=== PATIENT | male | born 1985 | race Caucasian/White ===

== ENCOUNTER 2020-05-19 13:32 | Inpatient (IN) | payer SELFPAY ==
[~2020-05-19] VITALS: Ht 185.4 cm; Wt 80.0 kg
[2020-05-19] MEDS ORDERED: FAMOTIDINE 20 MG/2 ML ONE (15:12)
[2020-05-19] MEDS ORDERED: LORazepam 2 MG/ML, 1ML ONE (15:12)
[2020-05-19] MEDS ORDERED: SODIUM CHLORIDE FLUSH 10ML SYR IVF ONE (15:30)
[2020-05-19] MEDS ORDERED: SODIUM CHLORIDE 0.9% 1,000 ML IV ONE (15:30)
[2020-05-19] MEDS ORDERED: LORazepam 2 MG/ML, 1ML IV ONE (15:30)
[2020-05-19] MEDS ORDERED: FAMOTIDINE 20 MG/2 ML IVPush ONE (15:30)
[2020-05-19] MEDS ORDERED: MAGNESIUM SULFATE 1 GM, THIAMINE 100 MG, FOLIC ACID 1 MG in SODIUM CHLORIDE 0.9% 1,000 ML IV ONE (15:30)
[2020-05-19 15:31] LABS: BASOPHILS % (AUTO) 1 % (0-1); EOSINOPHILS % (AUTO) 0 % (1-7); LYMPHOCYTES % (AUTO) 34 % (22-44); MEAN CORPUSCULAR HEMOGLOBIN 32.9 pg (27.5-34.5); MEAN CORPUSCULAR HGB CONC 34.2 g/dL (33.2-36.2); MEAN PLATELET VOLUME 7.1 fL (7.4-10.4); MONOCYTES % (AUTO) 9 % (2-9); NEUTROPHILS % (AUTO) 56 % (42-75); PLATELET COUNT 207 x10^3/uL (130-400); RED BLOOD COUNT 4.89 x10^6/uL (4.38-5.82); RED CELL DISTRIBUTION WIDTH 14.2 % (9.4-14.8)
[2020-05-19 15:33] LABS: MD NO
[2020-05-19 15:37] LABS: ALANINE AMINOTRANSFERASE 78 U/L (12-78); ALBUMIN 3.6 g/dL (3.4-5.0); ANION GAP 10 mmol/L (5-15); CHLORIDE 106 mmol/L (98-107); CREATININE 1.04 mg/dL (0.7-1.3)
[2020-05-19 15:38] LABS: ALKALINE PHOSPHATASE 88 U/L (45-117); BILIRUBIN,TOTAL 0.7 mg/dL (0.2-1.0); TOTAL PROTEIN 7.2 g/dL (6.4-8.2)
--- NOTE | 2020-05-19 15:39 | NUR ---
PT RESTING COMFORTABLY AFTER MED ADMINISTRATION. IV FLUIDS ON DIAL A FLOW AND BANANA BAG ON MED PUMP. MONITOR IN PLACE. PT INSTRUCTED DECKHAND MAINTENANCE LIGHT USE. PT VERBALIZES UNDERSTANDING.
[2020-05-19] MEDS ORDERED: MAGNESIUM SULFATE PMX 2GM/50ML 50 ML ONE (15:50)
[2020-05-19] MEDS ORDERED: POTASSIUM CHLORIDE 20 MEQ TAB.ER.PRT ONE (15:50)
[2020-05-19] MEDS ORDERED: LORazepam 1MG TABLET PO PRN ×4 (16:00)
[2020-05-19] MEDS ORDERED: ACETAMINOPHEN 325 MG TABLET PO PRN (16:00)
[2020-05-19] MEDS ORDERED: POTASSIUM CHLORIDE 20 MEQ TAB.ER.PRT PO ONE (16:00)
[2020-05-19] MEDS ORDERED: MAGNESIUM SULFATE PMX 2GM/50ML 50 ML IV ONE (16:00)
[2020-05-19] MEDS ORDERED: DOCUSATE 100 MG CAPSULE PO PRN (16:00)
[2020-05-19] MEDS ORDERED: LABETALOL 5MG/ML, 20ML IVPush PRN (16:00)
[2020-05-19] MEDS ORDERED: TRAZODONE 50MG TABLET PO PRN (16:00)
[2020-05-19] MEDS ORDERED: LORazepam 2 MG/ML, 1ML IV PRN ×5 (16:00)
[2020-05-19] MEDS ORDERED: NICOTINE 14MG/24 HR PATCH.TD24 TD SCH (16:00)
[2020-05-19] MEDS ORDERED: hydrALAzine 20 MG/ML, 1ML IVPush PRN (16:00)
[2020-05-19] MEDS ORDERED: ONDANSETRON 2MG/ML, 2ML IVPush PRN (16:00)
[2020-05-19 16:18] LABS: INTERNATIONAL NORMALIZED RATIO 1.08 (0.93-1.1); PROTHROMBIN TIME 11.5 Seconds (9.6-11.5)
[2020-05-19 16:30] LABS: FREE T4 (FREE THYROXINE) 0.92 ng/dL (0.76-1.46)
[2020-05-19 17:13] VITALS: BP 112/72
[2020-05-19] MEDS: DIAZEPAM 10 MG TABLET PO SCH ×2 (18:00→23:02)
[2020-05-19] MEDS ORDERED: POTASSIUM PHOSPHATE 22 MEQ in SODIUM CHLORIDE 0.9% 500 ML IV ONE (18:30)
[2020-05-19 19:55] VITALS: BP 98/59
[2020-05-19 21:13] LABS: MICROSCOPIC NOT IND
[2020-05-19 21:19] LABS: AMPHETAMINE SCREEN, URINE Negative (Negative); BARBITURATE SCREEN, URINE Negative (Negative); BENZODIAZEPINE SCREEN, URINE Negative (Negative); CANNABINOID SCREEN, URINE Negative (Negative); COCAINE SCREEN, URINE Positive (Negative); METHADONE SCREEN, URINE Negative (Negative); OPIATE SCREEN, URINE Negative (Negative)
[2020-05-20 02:12] VITALS: BP 114/72
[2020-05-20] MEDS: DIAZEPAM 10 MG TABLET PO SCH ×3 (04:55→17:26)
[2020-05-20 05:14] LABS: BASOPHILS % (AUTO) 1 % (0-1); EOSINOPHILS % (AUTO) 1 % (1-7); LYMPHOCYTES % (AUTO) 44 % (22-44); MEAN CORPUSCULAR HEMOGLOBIN 33.4 pg (27.5-34.5); MEAN CORPUSCULAR HGB CONC 34.4 g/dL (33.2-36.2); MEAN PLATELET VOLUME 7.5 fL (7.4-10.4); MONOCYTES % (AUTO) 9 % (2-9); NEUTROPHILS % (AUTO) 45 % (42-75); PLATELET COUNT 138 x10^3/uL (130-400); RED BLOOD COUNT 4.19 x10^6/uL (4.38-5.82); RED CELL DISTRIBUTION WIDTH 14.1 % (9.4-14.8)
[2020-05-20 05:23] LABS: ALBUMIN 2.8 g/dL (3.4-5.0); ANION GAP 8 mmol/L (5-15); CALCIUM 7.6 mg/dL (8.5-10.1); CHLORIDE 110 mmol/L (98-107)
[2020-05-20 05:30] LABS: ALANINE AMINOTRANSFERASE 68 U/L (12-78); ALKALINE PHOSPHATASE 78 U/L (45-117); BILIRUBIN,TOTAL 0.7 mg/dL (0.2-1.0); CREATININE 0.92 mg/dL (0.7-1.3); TOTAL PROTEIN 5.5 g/dL (6.4-8.2)
[2020-05-20 05:37] LABS: MD NO
[2020-05-20] MEDS ORDERED: MAGNESIUM SULFATE PMX 2GM/50ML 50 ML IV ONE (07:30)
[2020-05-20 07:48] VITALS: BP 129/77
[2020-05-20] MEDS: LORazepam 0.5MG TABLET PO PRN ×2 (09:23→13:20)
[2020-05-20] MEDS: PANTOPRAZOLE 40 MG IV IVPush SCH (09:23)
[2020-05-20 12:30] VITALS: BP 144/89
[2020-05-20] MEDS ORDERED: POTASSIUM CHLORIDE 20 MEQ, MAGNESIUM SULFATE 2 GM, THIAMINE 200 MG, FOLIC ACID 1 MG in ... IV SCH (15:00)
[2020-05-20 20:00] VITALS: BP 124/75
[2020-05-21] MEDS: DIAZEPAM 10 MG TABLET PO SCH ×2 (00:17→05:26)
[2020-05-21 01:50] VITALS: BP 135/84
[2020-05-21 05:29] LABS: BASOPHILS % (AUTO) 1 % (0-1); EOSINOPHILS % (AUTO) 3 % (1-7); LYMPHOCYTES % (AUTO) 38 % (22-44); MEAN CORPUSCULAR HEMOGLOBIN 33.3 pg (27.5-34.5); MEAN CORPUSCULAR HGB CONC 33.9 g/dL (33.2-36.2); MEAN PLATELET VOLUME 7.8 fL (7.4-10.4); MONOCYTES % (AUTO) 11 % (2-9); NEUTROPHILS % (AUTO) 48 % (42-75); PLATELET COUNT 143 x10^3/uL (130-400); RED BLOOD COUNT 4.46 x10^6/uL (4.38-5.82); RED CELL DISTRIBUTION WIDTH 13.9 % (9.4-14.8)
[2020-05-21 05:35] LABS: ALANINE AMINOTRANSFERASE 61 U/L (12-78); ALBUMIN 2.9 g/dL (3.4-5.0); ANION GAP 5 mmol/L (5-15); CALCIUM 7.9 mg/dL (8.5-10.1); CHLORIDE 108 mmol/L (98-107)
[2020-05-21 05:37] LABS: ALKALINE PHOSPHATASE 84 U/L (45-117); BILIRUBIN,TOTAL 0.6 mg/dL (0.2-1.0); TOTAL PROTEIN 6.2 g/dL (6.4-8.2)
[2020-05-21 06:47] LABS: MD NO
[2020-05-21 07:51] VITALS: BP 144/95
[2020-05-21] MEDS: PANTOPRAZOLE 40 MG IV IVPush SCH (08:25)
== END 2020-05-21 11:20 | disposition home or self-care (01) | DRG 392 ==
LOC: ED 15:50 → EDIP 16:11 → 4EST 17:50 → DCLOUNGE 05-21 11:13
PROVIDERS: ADMIT Internal Medicine; ATTEND Internal Medicine
DX: K29.20 Alcoholic gastritis without bleeding (principal); F10.239 Alcohol dependence with withdrawal, unspecified; K76.0 Fatty (change of) liver, not elsewhere classified; F14.10 Cocaine abuse, uncomplicated; I10 Essential (primary) hypertension; Z80.1 Family history of malignant neoplasm of trachea, bronchus and lung; Z80.41 Family history of malignant neoplasm of ovary; Z80.8 Family history of malignant neoplasm of other organs or systems; Z81.1 Family history of alcohol abuse and dependence; Z87.891 Personal history of nicotine dependence; Z79.899 Other long term (current) drug therapy; Z79.891 Long term (current) use of opiate analgesic
CPT/HCPCS: 36415; 96365; 99285; J7042; 76700; 80053; 80307; 80320; 81003; 83690; 83735; 84100; 84439; 84443; 85014; 85018; 85025; 85610; 93005; G0378; J2405; J3411; J3475; J3480; C9113; G0480; J2060; J7030; J7040

== ENCOUNTER 2020-06-01 12:55 | Emergency (ER) | payer OTHER ==
[~2020-06-01] VITALS: Ht 185.4 cm; Wt 81.1 kg
--- NOTE | 2020-06-01 13:56 | NUR ---
PT TO ROOM FROM LOBBY, GAIT STEADY.
--- NOTE | 2020-06-01 14:28 | NUR ---
PT IS A 34M WHO IS HERE TODAY FOR DETOX. HIS LAST DRINK WAS 12:00 TODAY. HE USUALLY DRINKS A FIFTH OF WHISKEY A DAY. HE WAS JUST ADMITTED FOR DETOX HERE 2 WEEKS AGO AND RELAPSED. SP02 AND BP MONITORS IN PLACE. CALL LIGHT WITHIN REACH.
[2020-06-01] MEDS ORDERED: CLON-275 PO (14:32)
[2020-06-01] MEDS ORDERED: LISI-170 PO (14:32)
[2020-06-01] MEDS ORDERED: NALT50TA PO (14:33)
[2020-06-01] MEDS ORDERED: PROP20TA PO (14:33)
[2020-06-01] MEDS ORDERED: POTASSIUM CHLORIDE 20 MEQ, MAGNESIUM SULFATE 1 GM, FOLIC ACID 1 MG, THIAMINE 200 MG, MV... IV SCH (15:30)
[2020-06-01 15:37] LABS: BASOPHILS % (AUTO) 2 % (0-1); EOSINOPHILS % (AUTO) 1 % (1-7); LYMPHOCYTES % (AUTO) 43 % (22-44); MEAN CORPUSCULAR HEMOGLOBIN 33.3 pg (27.5-34.5); MEAN CORPUSCULAR HGB CONC 34.2 g/dL (33.2-36.2); MEAN PLATELET VOLUME 7.2 fL (7.4-10.4); MONOCYTES % (AUTO) 7 % (2-9); NEUTROPHILS % (AUTO) 47 % (42-75); PLATELET COUNT 355 x10^3/uL (130-400); RED BLOOD COUNT 5.04 x10^6/uL (4.38-5.82); RED CELL DISTRIBUTION WIDTH 14.6 % (9.4-14.8)
[2020-06-01 15:40] LABS: MD NO
[2020-06-01 15:45] LABS: ALANINE AMINOTRANSFERASE 105 U/L (12-78); ALBUMIN 3.8 g/dL (3.4-5.0); ANION GAP 8 mmol/L (5-15); CALCIUM 8.3 mg/dL (8.5-10.1); CHLORIDE 106 mmol/L (98-107); CREATININE 1.19 mg/dL (0.7-1.3)
[2020-06-01 15:47] LABS: ALKALINE PHOSPHATASE 90 U/L (45-117); BILIRUBIN,TOTAL 0.5 mg/dL (0.2-1.0); TOTAL PROTEIN 7.7 g/dL (6.4-8.2)
[2020-06-01] MEDS ORDERED: LORazepam 1MG TABLET PO ONE (16:30)
[2020-06-01] MEDS ORDERED: LORazepam 1MG TABLET ONE (16:33)
--- NOTE | 2020-06-01 16:37 | NUR ---
PT RESTING COMFORTABLY ON GURNEY WITH CELL PHONE AND TV ON. CALL LIGHT WITHIN REACH. MEDICATED PER ORDERS. NO FURTHER NEEDS.
[2020-06-01 17:01] LABS: AMPHETAMINE SCREEN, URINE Negative (Negative); BARBITURATE SCREEN, URINE Negative (Negative); BENZODIAZEPINE SCREEN, URINE Positive (Negative); COCAINE SCREEN, URINE Positive (Negative); METHADONE SCREEN, URINE Negative (Negative); OPIATE SCREEN, URINE Negative (Negative)
[2020-06-01 17:02] LABS: CANNABINOID SCREEN, URINE Negative (Negative)
--- NOTE | 2020-06-01 17:17 | NUR ---
call to [facility] triage. They advised they do have beds available and are open 24 hours for admission. Will advise the patient of that option. Other options provided as well.
[2020-06-01] MEDS ORDERED: CHLORDIAZEPOXIDE 25 MG CAPSULE PO ONE (17:30)
[2020-06-01] MEDS ORDERED: CHLORDIAZEPOXIDE 25 MG CAPSULE ONE (17:46)
--- NOTE | 2020-06-01 18:56 | NUR ---
REPORT TO KHARI FRANCIS
[2020-06-01 19:32] VITALS: BP 110/70
--- NOTE | 2020-06-01 19:37 | NUR ---
Pt dc'd with written and verbal instructions. IV dc'd intact. Pt to go to [facility]. Pt states that is where he is going. Friend in room stating thats where she is driving him. [facility] aware and expecting patient. Pt education done on ETOH withdrawl. Pt aware of harm and knows he is to go to [facility]. Pt ambulatory out of ED and to [facility] with friend.
[2020-06-02] MEDS ORDERED: POTASSIUM CHLORIDE 20 MEQ, MAGNESIUM SULFATE 1 GM, FOLIC ACID 1 MG, THIAMINE 200 MG in ... IV SCH (15:30)
== END 2020-06-01 19:40 | disposition home or self-care (01) ==
LOC: ED 17:21
DX: F10.220 Alcohol dependence with intoxication, uncomplicated (principal); R11.2 Nausea with vomiting, unspecified; R19.7 Diarrhea, unspecified; R41.0 Disorientation, unspecified; I10 Essential (primary) hypertension; Y90.9 Presence of alcohol in blood, level not specified
CPT/HCPCS: 36415; 80053; 80307; 80320; 83690; 83735; 85025; 96365; 96366; 99284; J3411; J3475; J3480; J7042; G0480